=== PATIENT | female | born 1950 | race Caucasian/White ===

== ENCOUNTER → 2018-06-25 12:24 | Outpatient (CLI) | payer MEDICARE, OTHER, SELFPAY ==
--- NOTE | 2018-06-25 | DI.MG.S_ITS ---
BILATERAL DIGITAL SCREENING MAMMOGRAM 3D/2D WITH CAD: 06/25/2018 CLINICAL: Routine screening. Comparison is made to exam dated: 07/27/2016 [facility]. There are scattered fibroglandular elements in both breasts. Current study was also evaluated with a Computer Aided Detection (CAD) system. No significant masses, calcifications, or other findings are seen in either breast. There has been no significant interval change. IMPRESSION: NEGATIVE There is no mammographic evidence of malignancy. A 1 year screening mammogram is recommended. This exam was interpreted at Station ID: [id number]. NOTE: For mammograms, a report in lay terms will be sent to the patient. Approximately 15% of breast malignancies will not be visualized mammographically. In the management of a palpable breast mass, a negative mammogram must not discourage biopsy of a clinically suspicious lesion. Electronically Signed By: Amrik collado/loan:06/25/2018 17:41:14 copy to: LUZ ELENA PEREZ letter sent: Normal Exam ACR BI-RADS Category 1: Negative [id number]
== END ==
PROVIDERS: Family Provider Acupuncturist; PCP Acupuncturist; Visit Provider Specialist
DX: Z12.31 Encounter for screening mammogram for malignant neoplasm of breast (principal)
CPT/HCPCS: 77063; 77067

== ENCOUNTER 2019-02-11 08:15 | Outpatient (RCR) | payer MEDICARE, OTHER, SELFPAY ==
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
--- NOTE | 2018-11-07 16:58 | PT.OPPOC ---
Current Diagnoses Mixed incontinence (11/07/18) Female genital prolapse, unspecified (11/07/18) Provider Visit Care Team Role Provider Type Ariadne Mace MD Attending Provider Physician Specialty: BALLISTICIAN Address: [address] [place] [address], [id number] Email: [email or web address] Plan Of Care PT-OP-T Assessment and Plan Start: 11/07/18 07:34 Freq: Status: Active Protocol: Document 11/07/18 13:45 AMB (Rec: 11/12/18 10:18 AMB [id number]) Physical Therapy Assessment Rehab Potential Rehabilitation Potential Good Evaluation Complexity Number of Personal Factors/Comorbidities 1-2 Number of Body Systems Impaired 1-2 Clinical Presentation at Evaluation Stable Impairments Impairments Pain Strength Goals Two Impairment continence Short Term Goal (STG) Laurel will move from sit to stand without leaking urine. STG Duration 4 weeks Freezing Machine Operator Goal (LTG) Laurel will reduce her urgency so that she can wait 10 minutes between initial urge and voiding. LTG Duration 8 weeks One Impairment pelvic floor strength Short Term Goal (STG) Laurel will increase her pelvic floor strength to 4/5. STG Duration 4 weeks Freezing Machine Operator Goal (LTG) Laurel will move from sit to stand while engaging her pelvic floor. LTG Duration 8 weeks Assessment Summary Assessment Laurel attends physical therapy with mixed urinary incontinence and mild prolapse . She was able to contract her pelvic floor on command, but was weak especially in her anterior musculature. She will benefit from urge suppression techniques and behavioral training for her urge incontinence and nocturia , and pelvic floor strengthening for her stress incontinence. Physical Therapy Plan Frequency and Duration Frequency of Treatment 1x/Week Duration of Treatment 8 weeks Plan of Care Start Date 11/07/18 Plan of Care End Date 01/02/19 Therapeutic Interventions Therapeutic Interventions Home Exercise Program Manual Therapy Neuromuscular Re-education Self-Care/Home Management Therapeutic Activities Therapeutic Exercises Modalities Biofeedback Electric Stimulation Next Visit Focus/Plan Next Note Type Treatment Note Next Visit Plan Start with sEMG, then progress to urge suppression techniques. Plan of Care Dates Plan of Care Start Date 11/07/18 Plan of Care End Date 01/02/19 Please Sign and Return: I have reviewed this Plan of Care and certify that the skilled therapy services above are required to meet the patient?s needs. Physician Signature Date Printed Name and Credentials Clinical Instructor Signature Printed Name and Credentials
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
--- NOTE | 2019-01-09 15:29 | PT.OPPOC ---
Current Diagnoses Mixed incontinence (01/09/19) Female genital prolapse, unspecified (01/09/19) Visit Care Team Role Provider Type Ariadne Mace MD Attending Provider Physician Specialty: ASSISTANT CHIEF OF POLICE Address: [address] [place] [address], [id number] Email: [email or web address] Plan Of Care PT-OP-T Assessment and Plan Start: 11/07/18 07:34 Freq: Status: Active Protocol: Document 01/09/19 13:00 AMB (Rec: 01/09/19 13:45 AMB [id number]) Physical Therapy Assessment Goals Two Impairment continence Short Term Goal (STG) Laurel will move from sit to stand without leaking urine. STG Duration MET Fpc Goal (LTG) Laurel will reduce her urgency so that she can wait 10 minutes between initial urge and voiding. LTG Duration MET One Impairment pelvic floor strength Short Term Goal (STG) Laurel will increase her pelvic floor strength to 4/5. 01/09 NOT MET STG Duration 4 weeks Grinder Outside Diameter Goal (LTG) Laurel will move from sit to stand while engaging her pelvic floor. 01/09 NOT MET LTG Duration 8 weeks Assessment Summary Assessment Laurel has had a challenging time being consistent with her exercises. She was previously consistent and doing well, but got side tracked with family visiting and noticed an increase in leaking. Still not as bad as it was before she started PT. She would benefit from continued PT to make sure that she is able to progress appropriately and get back on track with her exercises. Physical Therapy Plan Frequency and Duration Frequency of Treatment 1x/Week Duration of Treatment 6 weeks Plan of Care Start Date 01/09/19 Plan of Care End Date 02/20/19 Therapeutic Interventions Therapeutic Interventions Home Exercise Program,Manual Therapy,Neuromuscular Re- education,Self-Care/Home Management,Therapeutic Activities,Therapeutic Exercises Modalities Biofeedback,Electric Stimulation Next Visit Focus/Plan Next Note Type Treatment Note Next Visit Plan pt not interested in scar tissue work or biofeedback today due to her back still being sore from going to the chiropractor. Plan of Care Dates Plan of Care Start Date 01/09/19 Plan of Care End Date 02/20/19 Please Sign and Return: I have reviewed this Plan of Care and certify that the skilled therapy services above are required to meet the patient?s needs. Physician Signature Date Printed Name and Credentials Clinical Instructor Signature Printed Name and Credentials
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
== END 2019-02-11 11:02 | disposition home or self-care (01) ==
LOC: PHYS 08:15
PROVIDERS: Visit Provider Specialist
DX: N39.46 Mixed incontinence (principal); N81.9 Female genital prolapse, unspecified
CPT/HCPCS: 97110; 97112; 97161

== ENCOUNTER 2019-05-08 16:09 | Emergency (ER) | payer MEDICARE, OTHER, SELFPAY ==
[2019-05-08 16:10] VITALS: BP 149/78; PULSE 71; RESP 18; TEMP 36.7; O2SAT 98
[2019-05-08] MEDS: ACETAMINOPHEN 325 MG TABLET 975 MG PO (16:45)
--- NOTE | 2019-05-08 16:47 | DI.RAD.S_ITS ---
PROCEDURE: XR ANKLE LT MIN 3V INDICATIONS: ankle injury TECHNIQUE: 3 views of the ankle were acquired. COMPARISON: None. FINDINGS: Bones: No fractures or dislocations. Ankle mortise is normally aligned. No suspicious bony lesions. Soft tissues: No tibiotalar joint effusion. Achilles tendon appears normal. IMPRESSION: No evidence acute bony abnormality of the left ankle Dictated by: Lamine Su M.D. on 05/08/2019 at 17:12 Approved by: Lamine Su M.D. on 05/08/2019 at 17:13
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
[2019-05-08] MEDS: HYDROCODONE/ACET 5/325 TABLET 1 TAB PO (17:53)
[2019-05-08 18:00] VITALS: BP 139/78; PULSE 77; RESP 16; O2SAT 99
== END 2019-05-08 18:44 | disposition home or self-care (01) ==
PROVIDERS: Emergency Provider Nurse Practitioner Family
DX: S93.402A Sprain of unspecified ligament of left ankle, initial encounter (principal); W01.0XXA Fall on same level from slipping, tripping and stumbling without subsequent striking against object, initial encounter
CPT/HCPCS: 73610; 99283

== ENCOUNTER → 2019-06-13 09:08 | Outpatient (CLI) | payer MEDICARE, OTHER, SELFPAY ==
--- NOTE | 2019-06-13 | DI.MRI.S_ITS ---
PROCEDURE: MR ANKLE RT WO CON INDICATIONS: Pain in right ankle and joints of right foot TECHNIQUE: Noncontrast sagittal T1 spin echo and T2 fast spin echo with fat saturation, axial proton density fast spin echo and T2 fast spin echo with fat saturation, coronal T1 spin echo and T2 fast spin echo with fat saturation through the ankle/hindfoot. COMPARISON: [facility] [place], CR, XR ANKLE 3+ VIEWS RIGHT, 06/06/2019, 10:03. FINDINGS: Image quality: Excellent. Bones and joints: No bone marrow contusions or fractures. No hindfoot coalitions. No osteochondral injuries of the talar dome. No pathologic joint effusions. Medial structures: The posterior tibialis, flexor digitorum longus, and flexor hallucis longus tendons are intact. Mild fluid adjacent to the posterior talus tendon. The posterior tibial neurovascular bundle appears normal within the tarsal tunnel, without extrinsic mass effect. The deep layer (anterior and posterior tibiotalar ligaments) and superficial layer (tibionavicular, tibiospring, and tibiocalcaneal ligaments) of the deltoid ligament appear normal. The spring ligament components (superomedial calcaneonavicular, medioplantar oblique calcaneonavicular, and inferoplantar longitudinal ligaments) are intact. Lateral structures: The anterior talofibular, calcaneofibular, and posterior talofibular ligaments appear intact. More superiorly, the anterior and posterior tibiofibular ligaments appear intact, as is the intermalleolar ligament. The tibiofibular syndesmosis is normal in width at 2 mm or less. The peroneus longus and brevis tendons demonstrate normal location and morphology. Adjacent bony peroneal tubercle and retrotrochlear prominence are normal in size. The sinus tarsi demonstrates normal fatty signal, without edema, fibrosis, or cyst formation. Visualized sinus tarsi components (cervical ligament, interosseous talocalcaneal ligament, roots of the inferior extensor retinaculum) appear normal. The calcaneonavicular and calcaneocuboid components of the bifurcate ligament appear intact. The dorsal calcaneocuboid ligament appears intact. Anterior structures: The tibialis anterior, extensor hallucis longus, and extensor digitorum longus tendons appear intact. The dorsal talonavicular ligament appears intact. Posterior and plantar structures: Achilles tendon is intact. Retrocalcaneal bursal fluid is present. There is borderline Regla deformity image 14/5. Thickening of the medial band of the plantar fashion keeping with age indeterminate plantar fasciitis. There is adjacent and internal T2 hyperintensity/edema. There is prominent plantar calcaneal spurring No abductor digiti quinti muscle atrophy to suggest Chase neuropathy. IMPRESSION: Chronic medial band plantar fasciitis Low-grade posterior tibialis tenosynovitis Mild soft tissue edema adjacent to the musculotendinous junction of the Achilles tendon. This could represent soft tissue contusion versus sequela of low-grade strain. In addition, there is retrocalcaneal bursitis, however the Achilles tendon appears grossly intact. Please correlate clinically Dictated by: Brandon Wood M.D. on 06/13/2019 at 11:30 Approved by: Brandon Wood M.D. on 06/13/2019 at 11:43
== END ==
PROVIDERS: Referring Provider Podiatrist; Visit Provider Podiatrist
DX: M25.571 Pain in right ankle and joints of right foot (principal); M72.2 Plantar fascial fibromatosis; M65.871 Other synovitis and tenosynovitis, right ankle and foot; M77.51 Other enthesopathy of right foot and ankle
CPT/HCPCS: 73721

== ENCOUNTER 2022-01-12 14:13 | Emergency (ER) | payer MEDICARE, OTHER, SELFPAY ==
[2022-01-12 14:41] VITALS: BP 143/64; PULSE 64; RESP 16; TEMP 36.8; O2SAT 97; BMI 29.8
--- NOTE | 2022-01-12 16:28 | DI.CT.S_ITS ---
PROCEDURE: CT HEAD/BRAIN WO CON INDICATIONS: fall TECHNIQUE: Noncontrast 4.5 mm thick angled axial sections acquired from the foramen magnum to the vertex, with coronal and sagittal reformats. For radiation dose reduction, the following was used: automated exposure control, adjustment of mA and/or kV according to patient size. COMPARISON: [facility], CT, CT CERVICAL SPINE WO CON, 01/12/2022, 16:34. [facility], CT, CT ENT SINUS WITHOUT CONTRAST, 12/25/2020, 10:34. FINDINGS: Image quality: Mild streak artifact can be seen through the skull base. CSF spaces: Basal cisterns are patent. No extra-axial fluid collections. The ventricles are symmetric in size and shape. Brain: No intracranial bleeds or masses. There is cerebral volume loss for age, with resultant ventricular and sulcal prominence. There are periventricular and deep white matter chronic small vessel ischemic changes. There is intracranial internal carotid artery atherosclerosis. Skull and face: Calvarium and visualized facial bones appear intact, without suspicious lesions. Incidental note is made of hyperostosis frontalis. This is not considered to be pathologic in a woman of this age. Sinuses: Visualized sinuses and mastoids are clear. Paranasal sinus postoperative change can be seen. IMPRESSION: No acute intracranial hemorrhage is seen. No acute intracranial process is seen. Dictated by: Boris Lal M.D. on 01/12/2022 at 15:47 Approved by: Boris Lal M.D. on 01/12/2022 at 15:47
--- NOTE | 2022-01-12 16:28 | DI.CT.S_ITS ---
PROCEDURE: CT CERVICAL SPINE WO CON INDICATIONS: fall TECHNIQUE: Noncontrast 3 mm thick sections acquired from the skull base to the T4 level. Sagittal and coronal reformats were then constructed. For radiation dose reduction, the following was used: automated exposure control, adjustment of mA and/or kV according to patient size. COMPARISON: [facility], CT, CT HEAD/BRAIN WO CON, 01/12/2022, 16:34. FINDINGS: Image quality: This examination is somewhat limited by quantum mottle artifact. Bones: No fractures or dislocations. Visualized superior ribs are intact. Focal degenerative change is seen involving the C1-C2 interface anteriorly. There is at least moderate disc space narrowing seen at C4-C5. Soft tissues: Prevertebral soft tissues are normal in thickness. No paravertebral hematomas. No apical pneumothoraces. Incidental note is made of an azygos lobe. IMPRESSION: Negative for acute fracture. Cervical spine degenerative changes are seen, which are overall worst at the C4-C5 level. Dictated by: Boris Lal M.D. on 01/12/2022 at 15:48 Approved by: Boris Lal M.D. on 01/12/2022 at 15:49
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
[2022-01-12] MEDS: DEXAMETHASONE 10 MG/ML VIAL PO (19:35)
[2022-01-12] MEDS: diphenhydrAMINE 25 MG TABLET PO (19:35)
[2022-01-12] MEDS: ACETAMINOPHEN 325 MG TABLET 650 MG PO (19:35)
[2022-01-12] MEDS: ONDANSETRON 4 MG ODT SL (19:35)
[2022-01-12] MEDS: methocarbamoL 500 MG TABLET PO (19:35)
[2022-01-12 19:42] VITALS: BP 140/60; PULSE 65; RESP 16; O2SAT 97
== END 2022-01-12 19:42 | disposition home or self-care (01) ==
PROVIDERS: Emergency Provider Nurse Practitioner Critical Care Medicine
DX: G44.309 Post-traumatic headache, unspecified, not intractable (principal); H53.9 Unspecified visual disturbance; W19.XXXA Unspecified fall, initial encounter
CPT/HCPCS: 70450; 72125; 99283; J1100

== ENCOUNTER → 2022-02-04 15:00 | Outpatient (CLI) | payer MEDICARE, OTHER, SELFPAY ==
--- NOTE | 2022-02-04 | DI.MG.S_ITS ---
BILATERAL DIGITAL SCREENING MAMMOGRAM 3D/2D WITH CAD: 02/04/2022 CLINICAL: Routine screening. Comparison is made to exams dated: 06/25/2018 mammogram and 07/27/2016 mammogram - [facility]. There are scattered areas of fibroglandular density in both breasts (category b / 25%-50% glandular tissue). Current study was also evaluated with a Computer Aided Detection (CAD) system. No significant masses, calcifications, or other findings are seen in either breast. There has been no significant interval change. IMPRESSION: NEGATIVE There is no mammographic evidence of malignancy. A 1 year screening mammogram is recommended. Based on the Tyrer Cuzick model (a risk assessment model) the patient's lifetime risk is 4.2% and her 10 year risk is 2.7%. According to the ACR, ACS, and NCCN guidelines, an annual breast MRI exam along with mammogram is recommended if the patient's lifetime risk is 20% or greater. This exam was interpreted at Station ID: [id number]. NOTE: For mammograms, a report in lay terms will be sent to the patient. Approximately 15% of breast malignancies will not be visualized mammographically. In the management of a palpable breast mass, a negative mammogram must not discourage biopsy of a clinically suspicious lesion. Electronically Signed By: Uday valdivia/loan:02/04/2022 16:53:22 copy to: LUZ ELENA PEREZ letter sent: Normal Exam ACR BI-RADS Category 1: Negative [id number]
== END ==
PROVIDERS: Referring Provider Nurse Practitioner; Visit Provider Nurse Practitioner
DX: Z12.31 Encounter for screening mammogram for malignant neoplasm of breast (principal); Z13.820 Encounter for screening for osteoporosis; Z78.0 Asymptomatic menopausal state; M85.88 Other specified disorders of bone density and structure, other site
CPT/HCPCS: 77063; 77067; 77080

== ENCOUNTER → 2022-07-25 14:43 | Outpatient (CLI) | payer MEDICARE, OTHER, SELFPAY ==
--- NOTE | 2022-07-25 | DI.US.S_ITS ---
PROCEDURE: US PELVIC COMPLETE INDICATIONS: POSTMENOPAUSAL BLEEDING TECHNIQUE: Real-time scanning was performed of the pelvic organs, with image documentation. Additional endovaginal scanning was necessary due to incomplete visualization of the adnexal and endometrial structures by transabdominal scanning. COMPARISON: None. FINDINGS: Uterus: Uterus is anteverted and normal in size at 7.7 x 3.0 x 4.8 cm. The myometrium is homogeneous. The endometrium measures 4.1 mm combined thickness. Multiple nabothian cysts, largest measuring 1.2 cm. Ovaries: Left ovary surgically absent. Right ovary measures 1.8 x 1.3 x 2.3 cm with volume estimated at 2.7 cc. No adnexal masses seen. Other: No pathologic free abdominal or pelvic fluid. IMPRESSION: 1. Normal endometrial complex at 4.1 mm. 2. Normal appearance of the right ovary. 3. Multiple complex nabothian cyst. We strive to produce accurate, complete, and clear reports of imaging services. To assist us in improving patient care, this report was composed using standard report templates and voice recognition software. Therefore, it may contain abnormal punctuation, insertions and/or omissions. Occasional wrong-word or sound-alike substitutions may occur. Though we review the report and make efforts to correct it, we do recommend that the report be read carefully in proper context to recognize any text inaccuracies. Dictated by: Christian QURESHI Interpreted: Jose Quintana MD on 07/25/2022 at 15:31 Transcribed by: JAI on 07/25/2022 at 15:33 Approved by: Marco A Quintana M.D. on 07/25/2022 at 16:51
== END ==
PROVIDERS: Referring Provider Nurse Practitioner; Visit Provider Nurse Practitioner
DX: N88.8 Other specified noninflammatory disorders of cervix uteri (principal); N95.0 Postmenopausal bleeding
CPT/HCPCS: 76830; 76856

== ENCOUNTER → 2022-11-24 11:11 | Outpatient (CLI) | payer MEDICARE, OTHER, SELFPAY ==
--- NOTE | 2022-11-24 | DI.CT.S_ITS ---
PROCEDURE: CT ABDOMEN PELVIS WO CON INDICATIONS: Postmenopausal bleeding. Lower abdominal pain and spotting. TECHNIQUE: Axial sections were acquired from the lung bases to the pubic symphysis. Oral contrast was administered. Coronal and sagittal reformats were performed. For radiation dose reduction, the following was used: automated exposure control, adjustment of mA and/or kV according to patient size. COMPARISON: None. FINDINGS: Image quality: Excellent. Lung bases: 7 mm juxtapleural nodule in the right lower lobe with smooth margins, favoring an intrapulmonary lymph node (series 3, image 13). Heart: No significant findings. URINARY: Right Kidney: No stones or hydronephrosis. lobulation Right Ureter: No hydroureter. Left Kidney: No stones or hydronephrosis. lobulation. Left Ureter: No hydroureter. Bladder: Normal wall thickness. No stones. ABDOMEN: Liver: Unremarkable. Gallbladder: Unremarkable. Biliary ducts: Unremarkable. Pancreas: Unremarkable. Spleen: Unremarkable. Adrenal Glands: Unremarkable. Stomach and Bowel: Colonic diverticulosis without evidence of diverticulitis. Peritoneum: No abnormal intraperitoneal fluid. No free air. Ventral Wall: No hernia. Abdominal Nodes: No enlarged retroperitoneal or mesenteric lymph nodes. Vessels: Aorta and inferior vena cava are normal in size. PELVIS: Pelvic Organs: Unremarkable. Pelvic Nodes: Unremarkable. Miscellaneous: No inguinal hernias are seen. Bones: Unremarkable. IMPRESSION: Colonic diverticulosis without evidence of diverticulitis. Dictated by: Calderon Fleming M.D. on 11/24/2022 at 14:21 Approved by: Calderon Fleming M.D. on 11/24/2022 at 14:25
== END ==
PROVIDERS: PCP Nurse Practitioner; Referring Provider Nurse Practitioner; Visit Provider Nurse Practitioner
DX: N95.0 Postmenopausal bleeding (principal); K57.90 Diverticulosis of intestine, part unspecified, without perforation or abscess without bleeding
CPT/HCPCS: 74176

== ENCOUNTER → 2023-03-31 16:46 | Outpatient (CLI) | payer MEDICARE, OTHER, SELFPAY ==
--- NOTE | 2023-03-31 | DI.MG.S_ITS ---
BILATERAL DIGITAL SCREENING MAMMOGRAM 3D/2D WITH CAD: 03/31/2023 CLINICAL: Routine screening. Comparison is made to exams dated: 02/04/2022 mammogram, 06/25/2018 mammogram, and 07/27/2016 mammogram - [facility]. There are scattered areas of fibroglandular density in both breasts (category b / 25%-50% glandular tissue). Current study was also evaluated with a Computer Aided Detection (CAD) system. No significant masses, calcifications, or other findings are seen in either breast. IMPRESSION: NEGATIVE There is no mammographic evidence of malignancy. A 1 year screening mammogram is recommended. Based on the Tyrer Cuzick model (a risk assessment model) the patient's lifetime risk is 4.0% and her 10 year risk is 2.7%. According to the ACR, ACS, and NCCN guidelines, an annual breast MRI exam along with mammogram is recommended if the patient's lifetime risk is 20% or greater. This exam was interpreted at Station ID: [id number]. NOTE: For mammograms, a report in lay terms will be sent to the patient. Approximately 15% of breast malignancies will not be visualized mammographically. In the management of a palpable breast mass, a negative mammogram must not discourage biopsy of a clinically suspicious lesion. Electronically Signed By: Izabela White M.D., PH.D hans/loan:04/02/2023 16:58:29 copy to: LUZ ELENA PEREZ letter sent: Normal Exam ACR BI-RADS Category 1: Negative [id number]
== END ==
PROVIDERS: PCP Nurse Practitioner; Referring Provider Nurse Practitioner; Visit Provider Nurse Practitioner
DX: Z12.31 Encounter for screening mammogram for malignant neoplasm of breast (principal)
CPT/HCPCS: 77063; 77067

== ENCOUNTER → 2024-05-23 12:29 | Outpatient (CLI) | payer OTHER, SELFPAY ==
--- NOTE | 2024-05-23 12:32 | DI.RAD.S_ITS ---
PROCEDURE: XR DEXA AXIAL SKELETON INDICATIONS: [facility] COMPARISON: [facility], CR, XR DEXA AXIAL SKELETON, 02/04/2022, 15:32. FINDINGS: Lumbar Spine: Bone mineral density 0.926 g/cm2, T score -1.1. Since the most recent prior study, there has been a statistically significant increase in bone mineral density by 8.9 %. Left Femoral Neck: Bone mineral density 0.651 g/cm2, T score -1.8 Left Hip: Bone mineral density 0.805 g/cm2, T score -1.1. Since the most recent prior study, there has been no statistically significant change in bone mineral density. Fracture Risk Calculation (when applicable): 10-year fracture risk of a major osteoporotic fracture 18% and of a hip fracture 6.7%. (T score greater or equal to -1.0 to: NORMAL) (T score from -1.1 to -2.4: OSTEOPENIA) (T score less than or equal to -2.5: OSTEOPOROSIS) IMPRESSION: 1. By WHO criteria, patient has osteopenia. 2. Interval statistically significant increase in bone mineral density at the lumbar spine. No statistically significant difference in bone mineral density at the left hip. Follow-up guidelines as follows: Osteoporosis: Consider a repeat DEXA and Vertebral Fracture Assessment (VFA) exam in 2 years or sooner if medically necessary, to reassess this patient's status. Osteopenia: Consider a repeat DEXA in 2-3 years to reassess this patient's status, or if there is a new clinical indication. Normal: Consider a repeat DEXA in 5 years or sooner, or if there is a new clinical indication. All treatment decisions require clinical judgment and consideration of individual patient factors, including patient preferences, comorbidities, previous drug use, risk factors not captured in the FRAX model (e.g., frailty, falls, vitamin D deficiency, increased bone turnover, interval significant decline in bone density ) and possible under- or over-estimation of fracture risk by FRAX. In addition, the NOF Guide recommends that FDA-approved medical therapies be considered in postmenopausal women and men age >= 50 years with a: * Hip or vertebral (clinical or morphometric) fracture * T-score of <=-2.5 at the spine or hip * Ten-year fracture probability by FRAX of >= 3% for hip fracture or >=20% for major osteoporotic fracture. Approved by: Uday Gonzalez M.D. on 05/23/2024 at 21:59
== END ==
PROVIDERS: PCP Nurse Practitioner; Referring Provider Family Medicine; Visit Provider Family Medicine
DX: Z00.00 Encounter for general adult medical examination without abnormal findings (principal); Z78.0 Asymptomatic menopausal state; M85.89 Other specified disorders of bone density and structure, multiple sites
CPT/HCPCS: 77080

== ENCOUNTER → 2025-04-27 14:05 | Outpatient (CLI) | payer OTHER, SELFPAY ==
--- NOTE | 2025-04-25 10:46 | DI.MRI.S_ITS ---
PROCEDURE: MR ABDOMEN WO/W CON INDICATIONS: Generalized abdominal pain TECHNIQUE: Coronal HASTE, axial 2D FLASH in- and [id number]; axial breath-hold T2 FSE. Dynamic axial VIBE during the administration of contrast; post-contrast coronal VIBE or 2D FLASH with fat saturation from the hepatic dome to the iliac crests. Optional diffusion weighted imaging and ADC may be performed. COMPARISON: [facility], CT, CT ABDOMEN PELVIS WO CON, 11/24/2022, 12:17. FINDINGS: Image quality: Diagnostic Lower chest: Unremarkable lung bases. No pleural effusions. Normal heart size. Liver: Small liver cysts are present. Non cirrhotic liver contour. Gallbladder and biliary system: Cholelithiasis. No biliary ductal dilation. Pancreas: No ductal dilation. Spleen: Nonenlarged Adrenals: No discrete nodules Kidneys: No solid mass. No hydronephrosis. Left renal cysts. Vessels and lymph nodes: The main portal vein is patent. No abdominal aortic aneurysm. No enlarged lymph nodes by size criteria. Bowel and peritoneum: No bowel obstruction. No pathologic ascites or abscess. Colonic diverticula are seen. Body wall: Unremarkable Bones: No aggressive appearing osseous abnormality. IMPRESSION: Cholelithiasis. No biliary ductal dilation. Consider ultrasound to evaluate for sonographic Cooney's sign if clinically necessary. Colonic diverticula. No definite inflammation on MRI. Other findings above. Dictated by: Herbert Meade M.D. on 04/25/2025 at 12:11 Approved by: Herbert Meade M.D. on 04/25/2025 at 12:16
--- NOTE | 2025-04-27 | DI.MRI.S_ITS ---
PROCEDURE: MR PELVIS WO/W CON INDICATIONS: PAIN TECHNIQUE: Coronal HASTE, sagittal breath-hold T2 FSE; axial T1 FSE with and without fat saturation through the pelvis. Optional long- and short-axis uterine nonbreath-hold T2 FSE through the uterus. Sagittal or axial dynamic VIBE during administration of contrast. Post-contrast axial or coronal VIBE/2-D FLASH with fat saturation from the iliac crests to the symphysis. Optional diffusion weighted imaging and ADC may be performed. COMPARISON: [facility], MR, MR ABDOMEN WO/W CON, 04/25/2025, 10:52. [facility], CT, CT ABDOMEN PELVIS WO CON, 11/24/2022, 12:17. FINDINGS: Image quality: Diagnostic Lower abdomen: No bowel obstruction. Moderate colonic fecal loading. No drainable ascites in the lower abdomen. Bladder: Unremarkable Reproductive organs: Overall endometrium is nonthickened, measuring 3-4 mm. Junctional zone is within normal limits. Intrinsically T1 hyperintense contents are seen within the vagina extending to the fornix. Complicated cluster of cysts involving the cervix measuring 2.8 x 1.6 cm. No significant adnexal lesion. The ovaries are probably atrophic and are not well seen. Rectum: Diffuse colonic diverticula. Moderate rectal stool ball. Vessels and lymph nodes: No aneurysmal artery identified. No lymphadenopathy by size criteria. Pelvic wall: Small areas of subcutaneous enhancement the gluteal regions. Bones: No aggressive appearing osseous finding. IMPRESSION: Moderate to large rectal stool ball is present, and numerous colonic diverticula are seen. Otherwise, no acute explanation to explain pain. Nonthickened endometrium. A cluster of cystic changes seen within the cervix measuring 2.8 x 1.6 cm in aggregate. This may represent a tunnel cluster of nabothian cysts. A rare differential consideration includes adenoma malignum. Intrinsically T1 hyperintense contents seen within the vagina, differential includes blood products. Correlate direct visualization. Other findings above. Dictated by: Herbert Meade M.D. on 04/28/2025 at 10:28 Approved by: Herbert Meade M.D. on 04/28/2025 at 10:35
== END ==
PROVIDERS: PCP Nurse Practitioner; Referring Provider Nurse Practitioner; Visit Provider Nurse Practitioner
DX: R10.84 Generalized abdominal pain (principal); Z80.8 Family history of malignant neoplasm of other organs or systems; K76.89 Other specified diseases of liver; K80.20 Calculus of gallbladder without cholecystitis without obstruction; N28.1 Cyst of kidney, acquired; K57.90 Diverticulosis of intestine, part unspecified, without perforation or abscess without bleeding
CPT/HCPCS: 72197; 74183; A9579